=== PATIENT | female | born 1965 | race African-American/Black ===

== ENCOUNTER 2018-04-29 11:16 | Emergency (ER) | payer BC ==
[~2018-04-29] VITALS: Ht 170.2 cm; Wt 123.8 kg
[~2018-04-29 11:16] MED LIST: HYDROCHLOROTHIA25 MG PO
[2018-04-29] MEDS ORDERED: LEVAQUIN750 MG PO (12:24)
[2018-04-29] MEDS ORDERED: VENTOLIN HFA18 GM IH (12:24)
[2018-04-29] MEDS ORDERED: PREDNISONE20 MG PO (12:24)
[2018-04-29 12:32] VITALS: BP 141/67
== END 2018-04-29 12:34 | disposition home or self-care (01) ==
LOC: EME 11:16
DX: J18.9 Pneumonia, unspecified organism (principal); M79.672 Pain in left foot
CPT/HCPCS: 71046; 73630; 87081; 87502; 87651 90; 99281; 99284